=== PATIENT | male | born 1935 | race Caucasian/White ===

== ENCOUNTER 2016-11-27 08:11 | Emergency (ER) | payer OTHER ==
[2016-11-27 08:18] VITALS: RESP 18
--- NOTE | 2016-11-27 08:20 | EDPHY ---
H & P Stated Complaint: r elbow bursitis Source: Patient - Personal History Current Tetanus/Diphtheria Vaccine: Yes - Medical/Surgical History Hx Asthma: No Hx Chronic Respiratory Disease: No Hx Diabetes: No Hx Cardiac Disease: Yes Hx Renal Disease: No Hx Cirrhosis: No Hx Alcoholism: No Hx HIV/AIDS: No Hx Splenectomy or Spleen Trauma: No Other PMH: lung cancer/r lobectomy/afib - Social History Smoking Status: Never smoked HPI/ROS: HPI CHIEF COMPLAINT: Right elbow erythema, warmth, swelling. HISTORY OF PRESENT ILLNESS: This patient is an 81-year-old male significant past medical history for atrial fibrillation on Eliquis, presents emergency room with right posterior elbow swelling, red and warmth. Does state that it is pruritic at times. He states this all started last night. Denies fever. He has full range of motion of his elbow. He states for the past week he has been itching his elbow. He is on unclear if he scratched and now it is infected. Past Medical History: AFib on Eliquis Past Surgical History: No recent surgical history Social History: Denies daily use drugs alcohol tobacco products. Family History: Noncontributory. ROS REVIEW OF SYSTEMS: A comprehensive 10 point review of systems is otherwise negative aside from elements mentioned in the history of present illness. Exam Constitutional triage nursing summary reviewed, vital signs reviewed, awake/ alert. Eyes normal conjunctivae and sclera, EOMI, PERRLA. HENT normal inspection, atraumatic, moist mucus membranes, no epistaxis, neck supple/ no meningismus, no raccoon eyes. Respiratory clear to auscultation bilaterally, normal breath sounds, no respiratory distress, no wheezing. Cardiovascular rate normal, regular rhythm, no murmur, no edema, distal pulses normal. Gastrointestinal soft, non-tender, no rebound, no guarding, normal bowel sounds, no distension, no pulsatile mass. Genitourinary no CVA tenderness. Musculoskeletal no midline vertebral tenderness, full range of motion, no calf swelling, no tenderness of extremities, no meningismus, good pulses, neurovascularly intact. Skin Right Arm: Neurovascularly intact distally. Right elbow. This shows fluctuance, warmth and erythema over the posterior elbow. Bursa appears to be inflamed and erythematous and fluctuant. He has full range of motion of the right elbow. Does not appear to be joint involved. No streaking up the arm. Neurologic awake, alert and oriented x 3, AAOx3, moves all 4 extremities equally, motor intact, sensory intact, CN II-XII intact, normal cerebellar, normal vision, normal speech. Psychiatric normal mood/affect. Heme/Lymph/Immune no lymphadenopathy. Differential Diagnosis: Includes but is not limited to in a particular order infected bursitis, septic bursitis, bursitis. Medical Decision Making: Plan for this patient will drain his bursa sent for culture. Started on antibiotics. Close orthopedic follow-up. Re-evaluation: Patient status post I and D please see procedure note by Rodrick REYEZ. Given that this patient has a history of MRSA infection. I will place on Keflex and Bactrim. He understands close follow-up with Orthopedics. Return to the emergency room if you have any worsening symptoms questions or concerns. This includes worsening redness, swelling pain fever. He understands. ( Teddy Onofre) Constitutional: Initial Vital Signs Temperature (C) 36.6 C 11/27/16 08:14 Heart Rate 94 11/27/16 08:14 Respiratory Rate 18 11/27/16 08:14 Blood Pressure 132/101 H 11/27/16 08:14 O2 Sat (%) 94 11/27/16 08:14 O2 Delivery Mode Room Air Allergies/Adverse Reactions: No Known Allergies Allergy (Verified 11/27/16 08:13) Home Medications: Medication Instructions Recorded Cephalexin [Keflex] 500 mg PO Q6H #28 cap 11/27/16 Eliquis 11/27/16 SIMVASTATIN 11/27/16 Sulfamethox/Tmp 800/160 mg 1 tab PO BID #14 tab 11/27/16 [Bactrim Ds] Medical Decision Making Procedures: Procedure: Aspiration of olecranon bursa I was asked by Dr Onofre to perform aspiration of right olecranon bursa Indication: Evaluation for the possibility of olecranon bursitis. Risks, benefits, alternatives of the procedure were discussed with the patient and consent obtained. The patient was prepped and draped in the usual sterile fashion over the dorsal aspect of the right elbow joint. Local anesthesia was provided with 1% lidocainewith epinephrine . The joint space was entered with a 18 gauge needle and 20 cc of hazy straw-colored fluid was obtained. There were no complications. Aspirate sent to laboratory for diagnostics. Patient tolerated procedure well The procedure was performed by myself. (Brenda Mensah) - Data Points Laboratory Results: 11/27/16 08:40 Fluid Glucose Cancelled Synovial Source Pending Synovial Color Pending Synovial Appearance Pending Synovial WBC Pending Synovial RBC Pending Synovial Glucose Pending Departure - Departure Disposition: Home, Routine, Self-Care Clinical Impression: Bursitis Qualifiers: Bursitis location: elbow Elbow bursitis location: olecranon bursitis Laterality : right Qualified Code(s): M70.21 - Olecranon bursitis, right elbow Condition: Good Instructions: Elbow Bursitis (ED) Additional Instructions: 1. Return emergency room if you have worsening swelling, redness, fever streaking up her arm or arm pain. 2. Please take antibiotics as prescribed. 3. Follow up with Orthopedics. Referrals: Panchito Gary MD [Primary Care Provider] - As per Instructions Kulwant Leal MD [Medical Doctor] - As per Instructions Prescriptions: Cephalexin [Keflex] 500 mg PO Q6H #28 cap Sulfamethox/Tmp 800/160 mg [Bactrim Ds] 1 tab PO BID #14 tab
[2016-11-27] MEDS ORDERED: SULFAMET/TMP DS PREPACK#2 BTL TAKEHOME ONE (08:54)
[2016-11-27] MEDS ORDERED: CEPHALEXIN 500MG PREPACK#4 BTL TAKEHOME ONE (08:54)
[2016-11-27] MEDS ORDERED: CEPHALEXIN 500 MG CAP PO ONE (08:54)
[2016-11-27] MEDS ORDERED: SULFAMETHOX/TMP 800/160 MG 1 TAB PO ONE (08:54)
[2016-11-27 09:10] LABS: GLUCOSE, SYNOVIAL FLUID < 20 mg/dL (55-113)
[2016-11-27 09:29] VITALS: BP 135/85; PULSE 68; TEMP 98.6; O2SAT 96
[2016-11-27 09:33] LABS: WBC, SYNOVIAL FLUID 11475 /mm3 (0-150)
== END 2016-11-27 09:27 | disposition home or self-care (01) ==
PROC: 0R9L3ZZ Drainage of Right Elbow Joint, Percutaneous Approach (ICD-10-PCS; principal; 2016-11-27)
DX: M70.21 Olecranon bursitis, right elbow (principal); Z85.118 Personal history of other malignant neoplasm of bronchus and lung

== ENCOUNTER → 2017-01-25 | Outpatient (CLI) | payer OTHER | LOC: FIMAGING 14:17 | PROVIDERS: ATTEND Internal Medicine | DX: R22.1 Localized swelling, mass and lump, neck (principal); L72.3 Sebaceous cyst ==

== ENCOUNTER → 2017-04-04 | Outpatient (CLI) | payer OTHER | LOC: FIMAGING 10:55 | PROVIDERS: ATTEND Internal Medicine | DX: M79.605 Pain in left leg (principal); R60.9 Edema, unspecified; R93.6 Abnormal findings on diagnostic imaging of limbs ==

== ENCOUNTER 2017-09-23 15:50 | Inpatient (IN) | payer OTHER ==
--- NOTE | 2017-09-23 16:03 | CPEKG ---
Heart Rate: 103 RR Interval: 583 QRSD Interval: 82 QT Interval: 316 QTC Interval: 414 QRS [place]: 25 T Wave [place]: 54 EKG Severity - ABNORMAL ECG - EKG Impression: ATRIAL FIBRILLATION EKG Impression: LOW VOLTAGE IN FRONTAL LEADS EKG Impression: BORDERLINE T WAVE ABNORMALITIES Electronically Signed By: Panchito Vogt 23-Sep-2017 19:43:31
[2017-09-23] MEDS ORDERED: NS 1,000 ML IV ONE (16:06)
--- NOTE | 2017-09-23 16:07 | EDPHY ---
H & P Time Seen by Provider: 09/23/17 16:01 HPI/ROS: Chief complaint. Sick for 5 days HPI. 82-year-old male presents by EMS with complaint of being sick for 5 days. He has had a cough that is occasionally productive. He has shortness of breath especially with exertion. Fever and chills today. Generally weak and lightheaded. No chest discomfort. No abdominal pain or vomiting or diarrhea. No urinary symptoms. Travel to [place] on a cruise about 3 weeks ago. Sick contact that he had a visit from his brother who was sick about a week ago. Last antipyretic was last night when he took ibuprofen ROS Constitutional. Fever and chills and weakness Eyes. no problems with vision ENT. no sore throat, no nasal drainage Cardiovascular. no chest pain Respiratory. Cough and shortness of breath Abdominal. no abdominal pain, no nausea/vomiting, no diarrhea . no problems urinating MS. no calf pain/swelling, no neck/back pain, no joint pain Skin. no rash Lymph. no swollen glands Neuro. Lightheaded and difficulty walking secondary to shortness of breath Past Medical/Surgical History: Past medical history lung cancer with lobectomy, atrial fibrillation, pulmonary fibrosis He has chronic atrial fibrillation on Eliquis Social History: , nonsmoker, no alcohol Smoking Status: Never smoked Physical Exam: General Appearance: Alert well-developed male moderate distress vital signs show temp 38.9 degrees, heart rate 107, blood pressure 182/88 Eyes: Pupils equal and round no pallor or injection. ENT, Mouth: Mucous membranes are moist. Respiratory: No retractions. Inspiratory expiratory rhonchi Cardiovascular: Regular rate and rhythm. Gastrointestinal: Abdomen is soft and nontender, no masses, bowel sounds normal. Neurological: Awake and alert, sensory and motor exams grossly normal. Skin: Warm and dry, no rashes. Musculoskeletal: Neck is supple nontender. Extremities symmetrical, full range of motion. Psychiatric: Patient is oriented X 3, there is no agitation. Constitutional: Initial Vital Signs Temperature (C) 38.9 C H 09/23/17 15:50 Heart Rate 107 H 09/23/17 15:50 Respiratory Rate 20 09/23/17 15:50 Blood Pressure 182/88 H 09/23/17 15:50 O2 Sat (%) 96 09/23/17 15:50 O2 Delivery Mode Non-Rebreather Mask O2 (L/minute) 10 Allergies/Adverse Reactions: No Known Allergies Allergy (Verified 11/27/16 08:13) Home Medications: Medication Instructions Recorded Eliquis 11/27/16 SIMVASTATIN 11/27/16 Medical Decision Making - Diagnostics Imaging Results: Imaging Impressions Chest X-Ray 09/23/17 16:05 Impression: Right lower lobe airspace consolidation compatible with pneumonia.. Chest x-ray interpreted by me shows a right lower lobe pneumonia Procedures: IV normal saline, monitor. Sepsis workup Ibuprofen 600 mg orally 4:42 p.m. patient's lactate is elevated. Severe sepsis is declared. Fluid bolus is ordered IV Levaquin ED Course/Re-evaluation: Re-evaluation 4:45 p.m.. Patient and his and I discussed imaging lab results. We discussed treatment plan including recommendation for admission. They expressed understanding I consulted and discussed case with Dr. Hannah, hospitalist, who agrees to the admission Differential Diagnosis: I considered pneumonia, sepsis, septic shock - Data Points Laboratory Results: Laboratory Results 09/23/17 16:00 09/23/17 09/23/17 09/23/17 16:00 16:00 16:00 WBC Pending RBC Pending Hgb Pending Hct Pending MCV Pending MCH Pending MCHC Pending RDW Pending Plt Count Pending MPV Pending Neut % (Auto) Pending Lymph % (Auto) Pending Mcintosh % (Auto) Pending Eos % (Auto) Pending Baso % (Auto) Pending Nucleat RBC Rel Count Pending Absolute Neuts (auto) Pending Absolute Lymphs (auto) Pending Absolute Monos (auto) Pending Absolute Eos (auto) Pending Absolute Basos (auto) Pending Absolute Nucleated RBC Pending Immature Gran % Pending Immature Gran # Pending PT 24.2 SEC H SEC (12.0-15.0) INR 2.17 H (0.83-1.16) APTT 36.5 SEC SEC (23.0-38.0) VBG Lactic Acid Sodium 141 mEq/L mEq/L (135-145) Potassium 4.5 mEq/L mEq/L (3.3-5.0) Chloride 101 mEq/L mEq/L (97-110) Carbon Dioxide 25 mEq/l mEq/l (22-31) Anion Gap 15 mEq/L mEq/L (8-16) BUN 26 mg/dL H mg/dL (7-23) Creatinine 1.2 mg/dL mg/dL (0.7-1.3) Estimated GFR 58 Glucose 138 mg/dL H mg/dL (70-100) Calcium 9.6 mg/dL mg/dL (8.5-10.4) Total Bilirubin 1.9 mg/dL H mg/dL (0.1-1.4) 09/23/17 16:00 WBC RBC Hgb Hct MCV MCH MCHC RDW Plt Count MPV Neut % (Auto) Lymph % (Auto) Mcintosh % (Auto) Eos % (Auto) Baso % (Auto) Nucleat RBC Rel Count Absolute Neuts (auto) Absolute Lymphs (auto) Absolute Monos (auto) Absolute Eos (auto) Absolute Basos (auto) Absolute Nucleated RBC Immature Gran % Immature Gran # PT INR APTT VBG Lactic Acid 4.2 mmol/L H mmol/L (0.7-2.1) Sodium Potassium Chloride Carbon Dioxide Anion Gap BUN Creatinine Estimated GFR Glucose Calcium Total Bilirubin Medications Given: Discontinued Medications Acetaminophen (Tylenol) 1,000 mg PO EDNOW ONE Stop: 09/23/17 16:20 Last Admin: 09/23/17 16:38 Dose: 1,000 mg Sodium Chloride (Ns) 1,000 mls @ 0 mls/hr IV EDNOW ONE; Wide Open PRN Reason: Protocol Stop: 09/23/17 16:07 Last Admin: 09/23/17 16:12 Dose: 1,000 mls Departure - Departure Disposition: [facility] Inpatient Acute Clinical Impression: Pneumonia Qualifiers: Pneumonia type: due to unspecified organism Laterality: right Lung location: lower lobe of lung Qualified Code(s): J18.1 - Lobar pneumonia, unspecified organism Condition: Fair Referrals: Patient,NotPresent [Unknown] - As per Instructions
[2017-09-23] MEDS ORDERED: ACETAMINOPHEN 500 MG TAB PO ONE (16:19)
[2017-09-23 16:30] LABS: INR 2.17 (0.83-1.16); PROTIME(PATIENT) 24.2 SEC (12.0-15.0)
[2017-09-23] MEDS ORDERED: NS 2,700 ML IV ONE (16:42)
[2017-09-23 17:19] LABS: PLATELET COUNT 105 10^3/uL (150-400)
[2017-09-23] MEDS ORDERED: ONDANSETRON DISINTEGRATING 4 MG TAB PO PRN (17:19)
[2017-09-23] MEDS ORDERED: ACETAMINOPHEN 325 MG TAB PO PRN (17:19)
[2017-09-23] MEDS ORDERED: ONDANSETRON 4 MG/2 ML VIAL IVP PRN (17:19)
--- NOTE | 2017-09-23 18:23 | GHP ---
[f rep st] HISTORY AND PHYSICAL DATE OF ADMISSION: 09/23/2017 CHIEF COMPLAINT: Feeling poorly. HISTORY OF PRESENT ILLNESS: This is an 82-year-old man, who presents with about 24 hours of feeling poorly. On , he went for a hike with his and felt normal. Yesterday, he began to feel poorly with cough, some weakness, lightheadedness. He had some chills today. He has never had pneumonia before. He does not have any symptoms of aspiration. He tells me he has a problem with his white blood cells, where he has an abnormal amount of immature white blood cells, which may make him somewhat immunocompromised. I do see elevated bands in the past. PAST MEDICAL/SURGICAL HISTORY: 1. Atrial fibrillation, on anticoagulation. 2. Lung cancer, status post lobectomy in 2007. 3. Chronic respiratory failure, on nocturnal oxygen. 4. Coronary artery disease, status post angioplasty about 25 years ago. 5. Pulmonary hypertension. 6. History of an elbow infection, as well as a neck infection. MEDICATIONS: Please see medication reconciliation. ALLERGIES: No known drug allergies. FAMILY HISTORY: Reviewed and noncontributory. SOCIAL HISTORY: He drinks a few alcoholic beverages a day. He is . He quit smoking about 60 years ago. REVIEW OF SYSTEMS: A 10-point review of systems is conducted and is negative except per HPI. PHYSICAL EXAM: VITAL SIGNS: Blood pressure to 115/65, heart rate 105, respiration rate 24, saturating 95% on 5 L Oxymizer. Temperature is 38.9. GENERAL: The patient is a very pleasant man, who appears comfortable despite his acute presentation. HEENT: Shows him to be normocephalic, atraumatic. CARDIOVASCULAR: Shows him to be irregularly irregular. I do not appreciate any murmurs, rubs, or gallops, though he has a faint S1, S2. PULMONARY: Exam shows diffuse rhonchi, as well as mild expiratory wheezes. ABDOMEN: Soft, nontender, nondistended. SKIN: Shows no rash. : No High. NEUROLOGIC: Exam shows him to be alert and oriented x3. He is moving all extremities. PSYCHIATRIC: Exam shows a normal mood and affect. LABS: Notable for a white count of 22,000. Differential is not back. Platelets are 105. Creatinine is 1.2. His lactate is 4.2, total bilirubin is 1.9. INR is 2.1. DATA: 1. I discussed with Dr. Vogt. We will admit to med/surg. 2. I personally reviewed and interpreted his chest x-ray. It shows diffuse right-sided pneumonia. 3. I personally reviewed and interpreted his EKG. This shows atrial fibrillation. It is a nonischemic EKG. IMPRESSION/PLAN: 1. Severe sepsis: He has an elevated lactate. He is receiving a fluid bolus. We will recheck his lactate. This is due to his pneumonia. I note that he is also febrile, tachycardic with a leukocytosis. 2. Right-sided pneumonia: We will treat as community acquired. Agree with Levaquin as ordered in the emergency department. We will provide him Mucinex, as well as nebulizers. We will check respiratory viral panel PCR. 3. Atrial fibrillation: This is chronic. We will continue his Eliquis for anticoagulation. We will continue any other cardiac medications. 4. Abfog-db-yelmwuw respiratory failure: He is above his nocturnal oxygen requirement. He is currently on 4 L. This is due to his pneumonia. 5. Coronary artery disease: We will continue his cardiac medications when these are reconciled. 6. Venous thromboembolism risk: This is low while he was on Eliquis. /[id number]/MODL MTDD
--- NOTE | 2017-09-23 19:23 | PDMN ---
Medical Necessity Medical necessity: C/M review: est. > 2 MN LOS for eval and TX of acute severe sepsis due to right sided pneumonia, acute on chronic respiratory failure requiring ongoing IV Levaquin, IV fluids, Proventil nebs, pulse oximetry, supplemental O2 4L/min currently - O2 requirement is above baseline nocturnal requirement, comorbid atrial fibrillation on chronic anticoagulation, CAD S/P angioplasty about 25 years ago history of lung cancer S/P lobectomu in 2007, chronic respiratory failure on nocturnal O2, pulmonary hypertension, elbow infection as well as a neck infection per H/P.
[2017-09-23] MEDS: ALBUTEROL 3 ML DEYVIAL IH SCH (21:21)
[2017-09-23] MEDS: diphenhydrAMINE 25 MG CAP PO SCH (21:53)
[2017-09-23] MEDS: PRAVASTATIN SODIUM 20 MG TAB PO SCH (21:54)
[2017-09-23] MEDS: CALCIUM CARB W/VIT D 500 MG TAB PO SCH (21:54)
[2017-09-23] MEDS: guaiFENesin 600 MG TAB.ER PO SCH (21:54)
[2017-09-23] MEDS: IBUPROFEN 200 MG TAB PO SCH (21:54)
[2017-09-23] MEDS: APIXABAN 5 MG TAB PO SCH (23:01)
[2017-09-24] MEDS: NS 1,000 ML IV SCH ×2 (04:56→19:24)
[2017-09-24 05:33] LABS: PLATELET COUNT 77 10^3/uL (150-400)
[2017-09-24] MEDS: ALBUTEROL 3 ML DEYVIAL IH SCH ×4 (05:33→20:13)
[2017-09-24] MEDS: guaiFENesin 600 MG TAB.ER PO SCH ×2 (08:58→21:47)
[2017-09-24] MEDS: OMEGA-3 FATTY ACIDS 1,000 MG CAP PO SCH (08:58)
[2017-09-24] MEDS: APIXABAN 5 MG TAB PO SCH ×2 (08:58→21:47)
[2017-09-24] MEDS: CYANO/VITAMIN B12 1000 MCG TAB PO SCH (08:58)
[2017-09-24] MEDS: PSYLLIUM METAMUCIL 1 PKT PO SCH (08:59)
--- NOTE | 2017-09-24 10:29 | HOSPPROG ---
Hospitalist Progress Note Assessment/Plan: * CAP * cont levaquin * Acute on chronic hypoxic resp failure * wean o2 * severe sepsis * improving * although lactate a little higher overnight - he feels a lot better, vitals are stable and has been ambulating * cont ivf for another day but will not repeat lactate today *afib * cont eliquis * dispo * possible home tomorrow Subjective: feels a lot naveen. walking around. still congested Objective: Vital Signs Temp Pulse Resp BP Pulse Ox 36.5 C 80 17 119/73 98 09/24/17 09:10 09/24/17 09:10 09/24/17 09:10 09/24/17 09:10 09/24/17 09:10 Microbiology 09/23/17 18:26 Respiratory Panel (PCR) - Final Nasal, Sinus - Swab No Organism Detected Laboratory Results 09/24/17 04:40 09/24/17 04:40 09/23/17 09/24/17 09/25/17 05:59 05:59 05:59 Intake Total 3800 Output Total 475 Balance 3325 PT 24.2 SEC (12.0-15.0) H 09/23/17 16:00 INR 2.17 (0.83-1.16) H 09/23/17 16:00 cxr an ekg pers reviewed and interpreted - Physical Exam Constitutional: no apparent distress, appears nourished, not in pain Eyes: anicteric sclera, EOMI Ears, Nose, Mouth, Throat: moist mucous membranes, hearing normal Cardiovascular: regular rate and rhythym, no murmur, rub, or gallop Respiratory: no respiratory distress, no rales or rhonchi, clear to auscultation , reduced air movement Gastrointestinal: normoactive bowel sounds, soft, non-tender abdomen, no palpable masses Skin: warm Neurologic: AAOx3 Psychiatric: interacting appropriately, not anxious, not encephalopathic, thought process linear ICD10 Worksheet Patient Problems: Problems Problem Status Onset Pneumonia Acute
--- NOTE | 2017-09-24 14:28 | ASMTCMCOM ---
CM Note CM Note Notes: 09/24/2017 Case Management Note Reviewed chart. Pt presented to the ED with complaints of shortness of breath and feeling unwell for several days. Pt admitted for treatment of suspected pneumonia. PT evaluated the pt and is recommending home. The pt is an avid hiker and . Case Management d/c poc: anticipating home independent with follow up as directed. Case Management available if needs change. Date Signed: 09/24/2017 02:28 PM Electronically Signed By:Liane Del Real RN
[2017-09-24] MEDS: PRAVASTATIN SODIUM 20 MG TAB PO SCH (21:47)
[2017-09-24] MEDS: CALCIUM CARB W/VIT D 500 MG TAB PO SCH (21:47)
[2017-09-24] MEDS: diphenhydrAMINE 25 MG CAP PO SCH (21:47)
[2017-09-24] MEDS: IBUPROFEN 200 MG TAB PO SCH (21:47)
[2017-09-25 04:41] LABS: PLATELET COUNT 82 10^3/uL (150-400)
[2017-09-25] MEDS: ALBUTEROL 3 ML DEYVIAL IH SCH ×4 (05:54→20:54)
[2017-09-25] MEDS: NS 1,000 ML IV SCH (08:10)
--- NOTE | 2017-09-25 09:25 | HOSPPROG ---
Hospitalist Progress Note Assessment/Plan: * CAP * cont levaquin * Acute on chronic hypoxic resp failure * probable element of fluid overload * will stop fluids and give a few doses of Lasix * severe sepsis * resolved *afib * cont eliquis * dispo * possible home tomorrow Subjective: increased o2 requirement. feels a little more SOB. says weight is up Objective: Vital Signs Temp Pulse Resp BP Pulse Ox 36.6 C 94 19 110/62 95 09/25/17 07:20 09/25/17 07:20 09/25/17 07:20 09/25/17 07:20 09/25/17 07:20 Microbiology 09/24/17 12:02 - Final Sputum, Expectorated Laboratory Results 09/25/17 04:22 09/25/17 04:22 09/24/17 09/25/17 09/26/17 05:59 05:59 05:59 Intake Total 3800 2989 Output Total 475 840 Balance 3325 2149 PT 24.2 SEC (12.0-15.0) H 09/23/17 16:00 INR 2.17 (0.83-1.16) H 09/23/17 16:00 - Physical Exam Constitutional: no apparent distress, appears nourished, not in pain Eyes: anicteric sclera, EOMI Ears, Nose, Mouth, Throat: moist mucous membranes, hearing normal Cardiovascular: irregularly irregular, edema (trace) Respiratory: no respiratory distress, other (slight rales) Gastrointestinal: normoactive bowel sounds, soft, non-tender abdomen Skin: warm Neurologic: AAOx3 Psychiatric: interacting appropriately, not anxious, not encephalopathic, thought process linear ICD10 Worksheet Patient Problems: Problems Problem Status Onset Pneumonia Acute
[2017-09-25] MEDS: CYANO/VITAMIN B12 1000 MCG TAB PO SCH (09:45)
[2017-09-25] MEDS: APIXABAN 5 MG TAB PO SCH ×2 (09:45→21:25)
[2017-09-25] MEDS: guaiFENesin 600 MG TAB.ER PO SCH ×2 (09:45→21:24)
[2017-09-25] MEDS: OMEGA-3 FATTY ACIDS 1,000 MG CAP PO SCH (09:46)
[2017-09-25] MEDS: PSYLLIUM METAMUCIL 1 PKT PO SCH (10:36)
[2017-09-25] MEDS: FUROSEMIDE 20 MG/2 ML VIAL IVP SCH ×2 (11:09→16:40)
--- NOTE | 2017-09-25 11:41 | ASMTCMCOM ---
CM Note CM Note Notes: Chart reviewed Per hospital medicine, patient is likely to dc tomorrow. Likely fluid overloaded and will be given diuretics today, CM to follow. Plan: Likely home with no needs. Date Signed: 09/25/2017 11:40 AM Electronically Signed By:Manuela Cahn RN
[2017-09-25] MEDS ORDERED: METOPROLOL TARTRATE 25 MG TAB PO ONE (18:13)
[2017-09-25] MEDS: CALCIUM CARB W/VIT D 500 MG TAB PO SCH (21:24)
[2017-09-25] MEDS: diphenhydrAMINE 25 MG CAP PO SCH (21:25)
[2017-09-25] MEDS: IBUPROFEN 200 MG TAB PO SCH (21:25)
[2017-09-25] MEDS: PRAVASTATIN SODIUM 20 MG TAB PO SCH (21:31)
[2017-09-25 23:09] VITALS: BP 116/74
[2017-09-26] MEDS ORDERED: AZITHROMYCIN 250 MG TAB PO SCH (09:00)
[2017-09-26 20:35] LABS: PLATELET COUNT 102 10^3/uL (150-400)
--- NOTE | 2017-09-26 22:29 | ASMTCMCOM ---
CM Note CM Note Notes: Chart reviewed. Per MD, okay to dc home today. He has home oxygen in place. NO other needs identified. CM available should needs arise. Plan: Home with his home oxygen. Date Signed: 09/26/2017 12:20 PM Electronically Signed By:Manuela Chan RN
== END 2017-09-26 15:30 | disposition home or self-care (01) | DRG 871 ==
LOC: EDUNIT# → F1N 18:04
PROVIDERS: ADMIT Student in an Organized Health Care Education/Training Program; ATTEND Student in an Organized Health Care Education/Training Program
DX: A41.9 Sepsis, unspecified organism (principal); R65.20 Severe sepsis without septic shock; J18.9 Pneumonia, unspecified organism; J96.21 Acute and chronic respiratory failure with hypoxia; I48.2 Chronic atrial fibrillation; Z79.01 Long term (current) use of anticoagulants; I25.10 Atherosclerotic heart disease of native coronary artery without angina pectoris; Z85.118 Personal history of other malignant neoplasm of bronchus and lung; J84.10 Pulmonary fibrosis, unspecified
CPT/HCPCS: 96365; 97116-GP; 97161-GP; G8978-GP-CJ; G8979-GP-CI; J0696; J1940; J1956; J7613

== ENCOUNTER → 2017-10-13 | Outpatient (CLI) | payer OTHER | LOC: FIMAGING 10:12 | PROVIDERS: ATTEND Internal Medicine | DX: J15.9 Unspecified bacterial pneumonia (principal) ==